=== PATIENT | male | born 1940 | race Caucasian/White ===

== ENCOUNTER 2020-07-22 08:21 | Outpatient (REF) | payer MEDICARE, OTHER, SELFPAY | END 2020-07-22 08:22 | disposition home or self-care (01) | LOC: HO.LAB 08:21 | PROVIDERS: PCP Internal Medicine; Visit Provider Internal Medicine | DX: Z20.822 Contact with and (suspected) exposure to COVID-19 (principal) | CPT/HCPCS: 36415; C9803; U0003 ==

== ENCOUNTER 2020-08-08 13:15 | Outpatient (REF) | payer MEDICARE, OTHER, SELFPAY ==
--- NOTE | ~2020-08-08 | XR_ITS ---
EXAMINATION: XR CHEST CLINICAL INFORMATION: Pleural effusion previous chest x-ray most recent June [address] August 2019 COMPARISON: Previous chest CT August 2019 and chest x-ray June 2019 TECHNIQUE: 2 views of the chest were obtained. FINDINGS: The cardiac and mediastinal contours are stable. There is a small left pleural effusion or pleural thickening that is similar to previous exams. There is adjacent left lower lobe atelectasis or consolidation that appears unchanged. The right lung is clear. There is no right pleural effusion. There are degenerative changes of the spine. XR/XR chest 2V IMPRESSION: Stable pleural and parenchymal changes at the left lung base from previous exams.
== END 2020-08-08 13:16 | disposition home or self-care (01) ==
LOC: HO.XRAY 13:15
PROVIDERS: PCP Internal Medicine; Visit Provider Internal Medicine Pulmonary Disease
DX: J90 Pleural effusion, not elsewhere classified (principal); R06.00 Dyspnea, unspecified; Z87.891 Personal history of nicotine dependence
CPT/HCPCS: 71046; 99212

== ENCOUNTER → 2020-08-11 12:57 | Outpatient (BNVA) | payer MEDICARE, OTHER, SELFPAY | PROVIDERS: PCP Internal Medicine; Visit Provider Internal Medicine Cardiovascular Disease | DX: R06.00 Dyspnea, unspecified (principal); R07.89 Other chest pain; I25.5 Ischemic cardiomyopathy; I25.10 Atherosclerotic heart disease of native coronary artery without angina pectoris; I35.0 Nonrheumatic aortic (valve) stenosis | CPT/HCPCS: 93005; 99212 ==

== ENCOUNTER → 2020-08-15 08:15 | Outpatient (REF) | payer MEDICARE, OTHER, SELFPAY ==
--- NOTE | ~2020-08-15 | NM_ITS ---
EXAMINATION: Exercise Myocardial perfusion study Indication: Shortness of breath on exertion with prior coronary artery bypass to evaluate for myocardial ischemia Technique: The patient was brought in for an exercise perfusion study on 08/15/2020. Patient performed exercise as per Zeb protocol and was injected 35 mCi of sestamibi was given intravenously one target HR was achieved. Images were obtained using the SPECT gamma camera interlaced with the gating device. Images were obtained in supine position. Resting perfusion study was performed on 08/19/2020. Patient was administered 35 mCi of sestamibi intravenously at rest. Images were then obtained in supine position. Images obtained with and without CT attenuation. Total DLP 92 mGy-cm. Images were processed with the software and compared side to side in short axis, horizontal long axis and vertical long axis views. Findings: The stress perfusion study showed non attenuated images show absent uptake in the basal inferior wall and severely reduced uptake in the mid inferior wall and moderately reduced uptake in the inferoapical and mildly reduced uptake in the apex of the LV myocardium. There is also severely reduced uptake in the basal inferolateral and mid inferolateral as well as mildly reduced uptake in the apical lateral wall of the LV myocardium. Attenuation corrected images show moderately reduced uptake in the inferior and mildly reduced uptake in the apex of the LV myocardium. Is also moderately reduced uptake in the inferolateral wall of the LV myocardium.. The gated study shows reduced LV systolic function with calculated LVEF of 36%. LV cavity is mildly dilated in size. The gated study shows diffusely reduced wall thickening and contraction of all segments. There is no transient ischemic dilation. Resting study shows an attenuated corrected images shows good uptake in the inferolateral as well as the inferior wall of the LV myocardium.. Gating at rest reveals no significant wall motion with ejection fraction at 36%. The findings are consistent with reversible defect of the inferior and inferolateral wall suggestive of ischemia.. NM/NM cardiolite stress test Impression: 1. Inferior and inferolateral ischemia at heart rate achieved 2. Gated LVEF is 36% 3. Transient ischemic dilatation not present Stress EKG is nondiagnostic for ischemia
--- NOTE | 2020-08-15 08:30 | CA_ITS ---
Acquisition Time: 2020-08-15 09:24:26 Total Exercise Time: 00:04:40 Test Indications: Dyspnea Medications: ASA ATORVASTATIN FUROSEMIDE LISINOPRIL METOPROLOL Protocol: SANCHEZ Max HR: 111 BPM 79% of Pred: 139 BPM Max BP: 142/080 mmHG Max Work Load: 4.6 METS Exercise stress nuclear using Sanchez protocol. Second stage held. and incline decreased. Pt exercised for total of 4 min 40 sec. with METS 3.9 and TAPHR up to 79%. EKG wiith occ. PVC's and no ischemic changes seen during exercise or in recovery, however pt's HR up to 78 %. Nuclear images to follow. Normotensive response to exercise. Test reviewed with Dr. Alva Referred By: Samson Berman Overread By: James Winters
== END ==
LOC: HO.CARD 08:15
PROVIDERS: PCP Internal Medicine; Visit Provider Internal Medicine Cardiovascular Disease
DX: R07.89 Other chest pain (principal); R06.00 Dyspnea, unspecified; I25.5 Ischemic cardiomyopathy; I25.10 Atherosclerotic heart disease of native coronary artery without angina pectoris
CPT/HCPCS: 78452; 93017; A9500

== ENCOUNTER → 2020-09-04 13:55 | Outpatient (BNVA) | payer MEDICARE, OTHER, SELFPAY | PROVIDERS: PCP Internal Medicine; Visit Provider Internal Medicine Cardiovascular Disease | DX: Z13.89 Encounter for screening for other disorder (principal) | CPT/HCPCS: Q3014 ==

== ENCOUNTER → 2020-09-08 09:31 | Outpatient (REF) | payer MEDICARE, OTHER, SELFPAY ==
--- NOTE | 2020-09-08 09:37 | CA_ITS ---
Transthoracic Echocardiogram Patient (Last, First, Middle): Jayjay Lucia, Gender: Male Date of : 1940 Age: 80 Procedure Date: 09/08/2020 Procedure Type: Transthoracic Echocardiogram Location: OP Height: 175.26 cm Weight: 92.99 kg BSA: 2.09 m2 Heart Rate: bpm BP: 128 / 70 mmHg [employer]: Referring MD: Samson Berman MD Symptoms: I42.9 - Cardiomyopathy, unspecified Study Quality: Fair ECG Rhythm: Sinus Conclusions: - The left ventricular systolic function is low normal. The visually estimated ejection fraction is between 50-55%. - Even with contrast use, wall motion assessment is suboptimal. - The inferolateral wall, the basal inferior, and mid inferior segments are akinetic. Findings Procedure Information Contrast agent, definity, is being given per protocol without apparent complications. Left Ventricle Normal left ventricular cavity size. There is moderately increased left ventricular wall thickness. The left ventricular systolic function is low normal. The visually estimated ejection fraction is between 50-55%. There is evidence of regional wall motion abnormalities. Wall Motion Rest Echo Findings The inferolateral wall, the basal inferior, and mid inferior segments are akinetic. Prior Study Comparison No significant change compared to prior study dated: 02/05/2020. Measurements 2D Linear Measurements IVSd: 1.65 0.6-0.9/0.6-1.0 cm LVIDd: 4.92 3.9-5.3/4.2-5.9 cm LVIDd Index: 2.35 2.4-3.2/2.2-3.1 cm/m2 LVIDs: 2.95 2.0-3.6 cm LVPWd: 1.63 0.7-1.1 cm LV Mass: 449.56 67-162/88-224 g LV Mass Index: 215.10 43-95/49-115 g/m2 2D Systolic Function EF 4C: 54.90 >55% EF 2C: 53.80 >55% EF BiP: 55.00 >55% Updated in Other Vendor System with Status of Final Sam Alva MD electronically signed on 09/10/2020 4:30:28 PM with status of Final
== END ==
LOC: HO.CARD 09:31
PROVIDERS: PCP Internal Medicine; Visit Provider Internal Medicine Cardiovascular Disease
DX: I25.5 Ischemic cardiomyopathy (principal); I42.9 Cardiomyopathy, unspecified
CPT/HCPCS: 93308; Q9957

== ENCOUNTER 2020-09-15 11:33 | Outpatient (REF) | payer MEDICARE, OTHER, SELFPAY ==
[2020-09-15 13:19] LABS: Hematocrit 41.8 % (42-52); Hemoglobin 14.2 g/dl (14.0-18.0); Mean Corpuscular Hemoglobin 33.1 pg (27.0-33.0); Mean Corpuscular Volume 97.4 fL (80-98); Mean Platelet Volume 10.3 fL (9.4-12.4); Platelet Count 208 X10*3/uL (160-400); Red Blood Count 4.29 X10*6/uL (4.60-5.80); Red Cell Distribution Width 12.2 % (11.0-16.0); White Blood Count 7.7 X10*3/uL (4.8-10.8)
[2020-09-15 13:27] LABS: INTERNATIONAL NORM RATIO 1.1 (0.9-1.1); Prothrombin Time 13.1 SEC (10.8-13.0)
[2020-09-15 13:44] LABS: Anion Gap 15 (12-20); Blood Urea Nitrogen 14 mg/dL (9-16); Calcium 9.6 mg/dL (8.4-10.2); Carbon Dioxide 29 mmol/L (22-29); Chloride 103 mmol/L (96-108); Estimated Glomerular Filt Rate > 60; Glucose Random 118 mg/dL (60-115); Sodium 142 mmol/L (135-145)
== END 2020-09-15 11:34 | disposition home or self-care (01) ==
LOC: HO.LAB 11:33
PROVIDERS: PCP Internal Medicine; Visit Provider Internal Medicine Cardiovascular Disease
DX: I20.8 Other forms of angina pectoris (principal)
CPT/HCPCS: 36415; 80048; 85027; 85610

== ENCOUNTER → 2020-09-30 09:42 | Outpatient (BNVA) | payer MEDICARE, OTHER, SELFPAY | PROVIDERS: PCP Internal Medicine; Visit Provider Internal Medicine Cardiovascular Disease | DX: I25.10 Atherosclerotic heart disease of native coronary artery without angina pectoris (principal); I35.0 Nonrheumatic aortic (valve) stenosis; Z79.899 Other long term (current) drug therapy; Z87.891 Personal history of nicotine dependence | CPT/HCPCS: 99212 ==

== ENCOUNTER → 2020-11-06 09:41 | Outpatient (BNVA) | payer MEDICARE, OTHER, SELFPAY | PROVIDERS: PCP Internal Medicine; Visit Provider Internal Medicine Pulmonary Disease | DX: J90 Pleural effusion, not elsewhere classified (principal); R06.00 Dyspnea, unspecified | CPT/HCPCS: 99212 ==

== ENCOUNTER → 2020-11-25 09:41 | Outpatient (BNVA) | payer MEDICARE, OTHER, SELFPAY | PROVIDERS: PCP Internal Medicine; Referring Provider Internal Medicine; Visit Provider Internal Medicine Cardiovascular Disease | DX: I25.5 Ischemic cardiomyopathy (principal); I25.10 Atherosclerotic heart disease of native coronary artery without angina pectoris | CPT/HCPCS: 99212 ==

== ENCOUNTER → 2021-01-08 09:30 | Outpatient (REF) | payer MEDICARE, OTHER, SELFPAY ==
--- NOTE | 2021-01-08 09:33 | CA_ITS ---
Transthoracic Echocardiogram Patient (Last, First, Middle): Jayjay Lucia, Gender: Male Date of : 1940 Age: 80 Procedure Date: 01/08/2021 Procedure Type: Transthoracic Echocardiogram Location: OP Height: 170.18 cm Weight: 89.36 kg BSA: 2.01 m2 Heart Rate: bpm BP: 116 / 72 mmHg Courtesy Van Driver: Referring MD: Samson Berman MD Symptoms: I35.0 - Nonrheumatic aortic (valve) stenosis Study Quality: Fair ECG Rhythm: Sinus Conclusions: - Even with contrast use, difficult to assess wall motion. Also, difficult to assess LVEF in spite of visual estimation as well as biplane calculation. Probably around 40% but limited confidence. - A bioprosthetic aortic valve is present. The prosthetic aortic valve appears to be functioning normally. - Small pericardial effusion posterior to the left ventricle. Findings Procedure Information The patient receives contrast. Left Ventricle The left ventricle was not well visualized. Normal left ventricular cavity size. Regional wall motion abnormalities can not be excluded due to suboptimal endocardial definition. E/E prime ratio is between 8 and 15 consistent with indeterminate filling pressures. Evidence suggests grade I (mild) diastolic dysfunction. Even with contrast use, difficult to assess wall motion. Also, difficult to assess LVEF in spite of visual estimation as well as biplane calculation. Probably around 40% but limited confidence. Right Ventricle The right ventricle was not well visualized. Possibly reduced right ventricular systolic function. Atria Both atria are normal in size. Aortic Valve A bioprosthetic aortic valve is present. The prosthetic aortic valve appears to be functioning normally. The mean gradient is 13 mmHg. There is no aortic valve regurgitation. Mitral Valve The mitral valve appears normal. There is mild mitral annular calcification. There is no mitral valve stenosis. Pulmonic Valve The pulmonic valve was not well visualized. Tricuspid Valve There is trace tricuspid valve regurgitation. The pulmonary artery systolic pressure is normal. Great Vessels The aortic annulus, sinuses of valsalva, asc aorta, and aortic arch are normal in size. Venous The inferior vena cava is normal in size and collapses less than 50% with inspiration. Pericardium/Pleural There are no definitive echocardiographic findings of tamponade physiology. Small pericardial effusion posterior to the left ventricle. Prior Study Comparison Changes noted compared to prior study dated: 09/08/2020. Due to study quality, unable to compare. Measurements 2D Linear Measurements RVIDd: 2.79 RVIDd Index: 1.39 IVSd: 0.94 0.6-0.9/0.6-1.0 cm LVIDd: 5.62 3.9-5.3/4.2-5.9 cm LVIDd Index: 2.80 2.4-3.2/2.2-3.1 cm/m2 LVIDs: 3.77 2.0-3.6 cm LVPWd: 1.32 0.7-1.1 cm Ao Root: 3.10 2.1-3.5 cm LA Diam: 4.70 2.7-3.8/3.0-4.0 cm LAIDs Index: 2.34 1.5-2.3 cm/m2 LV Mass: 325.05 67-162/88-224 g LV Mass Index: 161.71 43-95/49-115 g/m2 LVOT Diam: 2.00 3.0+(-)1.3 cm 2D Systolic Function EF 4C: 34.10 >55% EF 2C: 65.90 >55% EF BiP: 49.90 >55% Mitral Valve MV Pk E: 0.66 MV PK A: 1.16 MV Decel Time: 215.00 E/A: 0.60 E'Lateral: 6.42 E'Medial: 3.81 E/E' Med: 17.20 E/E' Lat: 10.20 PHT: 63.00 MVA PHT: 3.49 Decel Miner: 3.04 Aortic Valve AoV Pk Lee: 2.34 AoV Mn Lee: 1.70 AoV VTI: 0.41 AoV Pk Grad: 22.00 Aov Mn Grad: 13.00 ASMITA Cont.VTI: 1.37 LVOT LVOT Pk Lee: 0.96 LVOT Mn Lee: 0.66 LVOT VTI: 0.18 LVOT Pk Grad: 4.00 LVOT Mn Grad: 2.00 LVOT Diam: 2.00 LVOT Area: 3.14 Diastolic Function MV Pk E: 0.66 MV Pk A: 1.16 E/A: 0.60 E'Medial: 3.81 E/E' Med: 17.20 E' Laterial: 6.42 E/E' Lat: 10.20 Tricuspid Valve TR Pk Lee: 1.61 TR Pk Grad: 10.00 RA Press: 3.00 RVSP: 13.00 Great Vessels Aorta Ao Root-2D: 3.10 2.0-3.7 cm Ao Asc: 3.20 2.1-3.4 cm Ao Arch: 2.80 Updated in Other Vendor System with Status of Final Sam Alva MD electronically signed on 01/09/2021 3:28:28 PM with status of Final
== END ==
LOC: HO.CARD 09:30
PROVIDERS: Visit Provider Internal Medicine Cardiovascular Disease
DX: I25.10 Atherosclerotic heart disease of native coronary artery without angina pectoris (principal); I25.5 Ischemic cardiomyopathy; I35.0 Nonrheumatic aortic (valve) stenosis
CPT/HCPCS: 93306; Q9957

== ENCOUNTER → 2021-01-29 10:27 | Outpatient (BNVA) | payer MEDICARE, OTHER, SELFPAY | PROVIDERS: PCP Internal Medicine; Referring Provider Internal Medicine; Visit Provider Internal Medicine Cardiovascular Disease | DX: I25.10 Atherosclerotic heart disease of native coronary artery without angina pectoris (principal); I25.5 Ischemic cardiomyopathy; Z95.3 Presence of xenogenic heart valve | CPT/HCPCS: 93005; 99212 ==

== ENCOUNTER 2021-02-10 07:52 | Outpatient (REF) | payer MEDICARE, OTHER, SELFPAY ==
[2021-02-10 09:23] LABS: Anion Gap 13 (12-20); Blood Urea Nitrogen 14 mg/dL (9-16); Calcium 9.5 mg/dL (8.4-10.2); Carbon Dioxide 26 mmol/L (22-29); Chloride 106 mmol/L (96-108); Cholesterol 99 mg/dL; Estimated Glomerular Filt Rate > 60; Glucose Random 110 mg/dL (60-115); HDL Cholesterol 39 mg/dL; LDL Cholesterol Calculated 44 mg/dl; Potassium 4.9 mmol/L (3.3-5.1); Sodium 140 mmol/L (135-145); Triglycerides 80 mg/dL
== END 2021-02-10 07:53 | disposition home or self-care (01) ==
LOC: HO.LAB 07:52
PROVIDERS: PCP Internal Medicine; Visit Provider Internal Medicine Cardiovascular Disease
DX: I25.10 Atherosclerotic heart disease of native coronary artery without angina pectoris (principal)
CPT/HCPCS: 36415; 80048; 80061